=== PATIENT | female | born 1970 | race Caucasian/White ===

== ENCOUNTER 2023-06-14 14:32 | Emergency (ER) | payer OTHER, MEDICAID ==
[~2023-06-14] VITALS: Ht 162.6 cm; Wt 73.3 kg
[2023-06-14] MEDS ORDERED: IBUP-1455 PO (16:20)
[2023-06-14] MEDS ORDERED: METH-1182 PO (16:20)
[2023-06-14] MEDS: KETOROLAC TROMETH 60MG/2ML VIAL IM ONE (16:30)
[2023-06-14 16:49] VITALS: BP 147/85; PULSE 81; RESP 18; TEMP 98.5; O2SAT 96
== END 2023-06-14 16:48 | disposition home or self-care (01) ==
LOC: ER 14:32
DX: M54.42 Lumbago with sciatica, left side (principal); Z90.710 Acquired absence of both cervix and uterus
CPT/HCPCS: 96372; 99283; J1885